=== PATIENT | male | born 1965 | race Caucasian/White ===

== ENCOUNTER → 2017-10-10 14:13 | Outpatient (CLI) | payer MEDICARE, OTHER ==
[2015-12-14 13:41] VITALS: BMI 28.8
[~2017-10-10 14:13] MED LIST: APAP325 MG PO; ATACAND16 MG PO; CARDIZEM CD240 MG PO; COREG12.5 MG PO; DIABETA5 MG PO; GEMFIBROZIL600 MG PO; GLUCOTROL 5 MG T5 MG PO; HYDRALAZINE HCL25 MG PO; HYDROCHLOROTHIA25 MG PO; K-DUR20 MEQ PO; LASIX40 MG PO; LEVAQUIN500 MG PO; LIPITOR10 MG PO; NORCO 7.5-3251 EACH GT; NORVASC10 MG PO; PRENAVITE1 TAB PO; PRILOSEC20 MG PO; SINGULAIR10 MG PO; SODIUM BICARBO325 MG PO; SODIUM BICARBO650 MG PO; TUMS500 MG PO
== END | disposition home or self-care (01) ==
LOC: D.CT 14:13
DX: L03.116 Cellulitis of left lower limb (principal)